=== PATIENT | female | born 1945 | race Caucasian/White ===

== ENCOUNTER 2017-07-05 15:16 | Emergency (ER) | payer MEDICARE, OTHER ==
--- NOTE | 2017-07-05 15:23 | ED.PDOC ---
History of Present Illness - General Chief Complaint: Neuro Symptoms/Deficits Stated Complaint: ALTERED MENTAL STATE Time Seen by Provider: 07/05/17 15:21 Source: family Additional Information: 71 YEAR OLD FEMALE VISITING FROM [place] BECAME UNRESPONSIVE AT HOME BROUGHT IN HERE BY FAMILY IN PRIVATE CAR SHE APPARENTLY HAD A SEIZURE LIKE ACTIVITY ON THE WAY TO THE HOSPITAL LAST DECEMBER 2016 WHILE IN [place] SHE HAD SIMILAR EPISODE AND WAS DISCHARGED HOME ATER WORK UP WITH POSSIBLE DIAGNOSIS TIA PER FAMILY HER BBG HERE IS 145 - History of Present Illness Timing/Duration: 1 hour Severity: severe Improving Factors: nothing Worsening Factors: nothing Allergies/Adverse Reactions: Allergies NO KNOWN ALLERGY Allergy (Verified 07/05/17 15:40) Home Medications: Ambulatory Orders Amlodipine Besylate [Norvasc] 2.5 mg PO DAILY 07/05/17 Ezetimibe-Simvastatin [Ezetimibe/Simvastatin 10-40 mg] 1 tab PO DAILY 07/05/17 Ezetimibe-Simvastatin [Vytorin 10-40 mg] 1 tab PO DAILY 07/05/17 Metformin HCl [Metformin HCl ER] 1,000 mg PO DAILY 07/05/17 Quinapril HCl 40 mg PO BID 07/05/17 Review of Systems - Review of Systems Unable to Obtain Due To: clinical condition - UNRESPOSIVE Family Medical History - Family History Mother Family History: Unknown Living Status: Physical Exam - Physical Exam Eye Exam: bilateral normal - SMALL PUPIL SLUGGISH TO LIGHT ENT Exam: TMs normal Neck: supple, normal inspection, trachea midline Respiratory: lungs clear, normal breath sounds, no respiratory distress Cardiovascular/Chest: normal peripheral pulses, regular rate, rhythm, no edema, no gallop, no JVD Extremities Exam: no edema Mental Status: unresponsive Departure - Departure Clinical Impression: Seizure disorder Time of Disposition: 18:27 Disposition: Transfer to Hospital Departure Forms: ED Discharge - Pt. Copy, Patient Portal Self Enrollment Home Medications: Ambulatory Orders Amlodipine Besylate [Norvasc] 2.5 mg PO DAILY 07/05/17 Ezetimibe-Simvastatin [Ezetimibe/Simvastatin 10-40 mg] 1 tab PO DAILY 07/05/17 Ezetimibe-Simvastatin [Vytorin 10-40 mg] 1 tab PO DAILY 07/05/17 Metformin HCl [Metformin HCl ER] 1,000 mg PO DAILY 07/05/17 Quinapril HCl 40 mg PO BID 07/05/17 Transfer to Outside Facility - Transfer Information Accepting Provider:: DR ARNOLD Accepting Facility: [facility] Reason for Transfer: required specialist not available
[2017-07-05 15:49] VITALS: TEMP 97.1
--- NOTE | 2017-07-05 15:53 | RAD ---
EXAM DESCRIPTION: Chest,1 View CLINICAL HISTORY: R/O CHF COMPARISON: None available TECHNIQUE: AP portable chest FINDINGS: The exam reveals an ovoid density in the right mid chest which has the appearance of fluid trapped within the horizontal fissure. Mild cardiomegaly is observed. Pulmonary vascular redistribution is noted. No overt pulmonary edema is seen. IMPRESSION: An ovoid density is observed in the right mid chest and has the appearance of fluid trapped in the fissure. Pulmonary vascular congestion and cardiomegaly are observed. Further evaluation the patient with a good quality PA and lateral chest is recommended. Electronically signed by: Richard Shelton MD 07/05/2017 3:52 PM FI[employer]IST
--- NOTE | 2017-07-05 15:57 | CT ---
EXAM DESCRIPTION: Head CLINICAL HISTORY: 71 years, Female, R/O BLEED cephalgia COMPARISON: None TECHNIQUE: Head CT was performed without IV contrast. This exam was performed according to our departmental dose-optimization program, which includes automated exposure control, adjustment of the mA and/or kV according to patient size and/or use of iterative reconstruction technique. FINDINGS: There is no acute intracranial hemorrhage. There is no midline shift or other mass effect. The ventricles and basilar cisterns are well maintained. No posterior fossa lesion. Chronic ischemic changes are noted in the periventricular white matter. No cortical edema or sulcal effacement is seen to suggest acute cortical infarct. There is a small area of decreased attenuation in the left subinsular cortex, likely related to remote lacunar infarct. Visualized paranasal sinuses and orbits are unremarkable. Vascular calcifications are noted. There is no calvarial fracture. IMPRESSION: Chronic ischemic changes including remote lacunar infarct, but no hemorrhage or other acute intracranial abnormality. Electronically signed by: Alfred Cherry MD 07/05/2017 3:56 PM [facility]
[2017-07-05] MEDS ORDERED: SODIUM CHLORIDE 0.9% 1000ML 1,000 ML IVS ONE (16:12)
[2017-07-05] MEDS ORDERED: levETIRAcetam INJ 500 MG in SODIUM CHLORIDE 0.9% 100ML 100 ML IVPB ONE (17:04)
[2017-07-05] MEDS ORDERED: levETIRAcetam INJ 100 MG/ML VIAL IVPB ONE (18:34)
[2017-07-05] MEDS ORDERED: SODIUM CHLORIDE 0.9% 100ML 100 ML IVPB ONE (18:34)
[2017-07-05 18:48] VITALS: BP 128/84; O2SAT 95
== END 2017-07-05 19:25 | disposition short-term general hospital (02) ==
LOC: ER 15:16
DX: G40.909 Epilepsy, unspecified, not intractable, without status epilepticus (principal)
CPT/HCPCS: 36415; 36416; 70450; 71045; 80053; 82948; 84484; 85025; 85610; 85730; 93005; J7030; J7050